=== PATIENT | male | born 1955 | race Caucasian/White ===

== ENCOUNTER 2016-06-04 23:49 | Inpatient (IN) | payer MEDICARE, MEDICAID ==
[~2016-06-04] VITALS: Ht 167.6 cm; Wt 96.6 kg
[2016-06-05] MEDS ORDERED: OLANZapine 5 MG RAPDIS TABLET PO PRN (03:45)
[2016-06-05] MEDS: LORazepam 2 MG TABLET PO PRN ×2 (05:32→19:55)
[2016-06-05 05:50] VITALS: BP 132/67
[2016-06-05 08:33] VITALS: BP 123/75
[2016-06-05] MEDS ORDERED: ACETAMINOPHEN 325 MG TABLET PO PRN (09:45)
[2016-06-05] MEDS ORDERED: HydrOXYzine PAMOATE 50 MG CAPSULE PO PRN (09:45)
[2016-06-05] MEDS ORDERED: PROMETHAZINE HCL 25 MG TABLET PO PRN (09:45)
[2016-06-05] MEDS ORDERED: MAGNESIUM HYDROXIDE SUSPENSION 30 ML UDCUP PO PRN (09:45)
[2016-06-05] MEDS ORDERED: MAG HYDROX/AL HYDROX/SIMETH ES 30 ML SUSPENSION UDCUP PO PRN (09:45)
[2016-06-05] MEDS ORDERED: TUBERCULIN, PURIFIED PROTEIN DERIVATIVE 5 TU/0.1 ML SYG ID ONE (09:45)
[2016-06-05] MEDS ORDERED: LOPERAMIDE HCL 2 MG CAPSULE PO PRN (09:45)
[2016-06-05 16:33] VITALS: BP 144/74
[2016-06-05] MEDS: THIAMINE HCL 100 MG TABLET PO SCH (16:43)
[2016-06-05] MEDS: PREGABALIN 50 MG CAPSULE PO SCH (17:00)
[2016-06-05] MEDS: ACAMPROSATE CALCIUM 333 MG DR TABLET PO SCH (17:00)
[2016-06-05] MEDS ORDERED: PRAZOSIN HCL 1 MG CAPSULE PO SCH (21:00)
[2016-06-05] MEDS: DIVALPROEX SODIUM 500 MG ER TABLET PO SCH (21:00)
[2016-06-05] MEDS: ZOLPIDEM TARTRATE 10 MG TABLET PO PRN (21:11)
[2016-06-06 07:14] VITALS: BP 131/82
[2016-06-06 08:12] VITALS: BP 134/68
[2016-06-06 08:35] LABS: BASOPHILS % (AUTO) 0.5 % (0.0-2.0); EOSINOPHILS % (AUTO) 3.9 % (1.0-6.0); HEMATOCRIT 38.5 % (41-53); HEMOGLOBIN 12.5 g/dL (13.5-17.5); LYMPHOCYTES # (AUTO) 2.2 K/uL (1.0-4.8); LYMPHOCYTES % (AUTO) 20.6 % (22.0-44.0); MEAN CORPUSCULAR HEMOGLOBIN 27.6 pg (26.0-34.0); MEAN CORPUSCULAR HGB CONC 32.5 G/dL (31.0-37.0); MEAN CORPUSCULAR VOLUME 85 fL (80-100); MONOCYTES # (AUTO) 0.8 K/uL (0.1-1.0); MONOCYTES % (AUTO) 7.6 % (2.0-9.0); NEUTROPHILS # (AUTO) 7.2 K/uL (1.8-7.7); NEUTROPHILS % (AUTO) 67.4 % (40.0-70.0); PLATELET COUNT (AUTO) 440 K/uL (150-450); RED BLOOD CELL COUNT(AUTO) 4.52 MIL/uL (4.50-5.90); RED CELL DISTRIBUTION WIDTH 14.8 % (11.5-14.5); WHITE BLOOD COUNT (AUTO) 10.7 K/uL (4.5-11.0)
[2016-06-06] MEDS: ACAMPROSATE CALCIUM 333 MG DR TABLET PO SCH ×3 (09:00→17:00)
[2016-06-06] MEDS: PREGABALIN 50 MG CAPSULE PO SCH ×2 (09:00→13:00)
[2016-06-06] MEDS ORDERED: DULoxetine HCL 20 MG CAPSULE PO SCH (09:00)
[2016-06-06] MEDS: THIAMINE HCL 100 MG TABLET PO SCH ×2 (09:00→17:00)
[2016-06-06] MEDS ORDERED: TraMADol HCL 50 MG TABLET PO PRN (09:00)
[2016-06-06] MEDS: FOLIC ACID 1 MG TABLET PO SCH (09:00)
[2016-06-06] MEDS: MULTIVITAMINS WITH MINERALS, THERAPEUTIC TABLET PO SCH (09:00)
[2016-06-06 09:16] LABS: HEMOGLOBIN A1C 6.6 % (4.5-6.2)
[2016-06-06 09:21] LABS: ALANINE AMINOTRANSFERASE 23 U/L (12-78); ALBUMIN 3.5 g/dL (3.4-5.0); ANION GAP 10 mmol/L (8-16); ASPARTATE AMINOTRANSFERASE 17 U/L (15-37); BILIRUBIN,TOTAL 0.3 mg/dL (0.1-1.0); CALCIUM, TOTAL 8.7 mg/dL (8.8-10.5); CARBON DIOXIDE 27 mmol/L (22-29); CHLORIDE 103 mmol/L (98-107); CREATININE 1.02 mg/dL (0.60-1.30); GLOMERULAR FILTR. RATE CALC > 60 mL/min (>60); POTASSIUM 4.2 mmol/L (3.5-5.1); SODIUM SERUM 140 mmol/L (136-145); THYROID STIMULATING HORMONE 1.12 uIU/mL (0.36-3.74); TOTAL PROTEIN, SERUM 7.5 g/dL (6.4-8.2); UREA NITROGEN, BLOOD 18 mg/dL (7-18)
[2016-06-06] MEDS: LORazepam 2 MG TABLET PO PRN ×3 (09:44→18:27)
[2016-06-06] MEDS ORDERED: DIVA500T52 PO (13:55)
[2016-06-06] MEDS ORDERED: ACAM333T7 PO (13:55)
[2016-06-06] MEDS: DIVALPROEX SODIUM 500 MG ER TABLET PO SCH (20:35)
[2016-06-06] MEDS: ZOLPIDEM TARTRATE 10 MG TABLET PO PRN (20:36)
[2016-06-07] MEDS: LORazepam 2 MG TABLET PO PRN ×2 (06:51→10:55)
[2016-06-07 08:27] VITALS: BP 141/80
[2016-06-07] MEDS: THIAMINE HCL 100 MG TABLET PO SCH (09:00)
[2016-06-07] MEDS: ACAMPROSATE CALCIUM 333 MG DR TABLET PO SCH (09:00)
[2016-06-07] MEDS: FOLIC ACID 1 MG TABLET PO SCH (09:00)
[2016-06-07] MEDS: MULTIVITAMINS WITH MINERALS, THERAPEUTIC TABLET PO SCH (09:00)
[2016-06-07] MEDS ORDERED: ATENOLOL 50 MG TABLET PO SCH ×2 (09:23→10:00)
[2016-06-07] MEDS ORDERED: ATEN50TA PO (09:32)
== END 2016-06-07 12:52 | disposition home or self-care (01) | DRG 881 ==
LOC: EDSTATUS 23:50 → B3A 06-05 04:34
PROVIDERS: ADMIT Psychiatry & Neurology Psychiatry; ATTEND Psychiatry & Neurology Psychiatry
PROC: GZ51ZZZ Individual Psychotherapy, Behavioral (ICD-10-PCS; principal; 2016-06-05)
DX: F32.9 Major depressive disorder, single episode, unspecified (principal); F43.10 Post-traumatic stress disorder, unspecified; E78.5 Hyperlipidemia, unspecified; G89.29 Other chronic pain; I10 Essential (primary) hypertension; K31.9 Disease of stomach and duodenum, unspecified; M54.9 Dorsalgia, unspecified; Z79.899 Other long term (current) drug therapy; Z88.8 Allergy status to other drugs, medicaments and biological substances; Z88.4 Allergy status to anesthetic agent; Z91.19 Patient's noncompliance with other medical treatment and regimen; Z59.9 Problem related to housing and economic circumstances, unspecified; Z81.8 Family history of other mental and behavioral disorders
CPT/HCPCS: 83036; 84439; 84443

== ENCOUNTER 2016-07-26 18:08 | Inpatient (IN) | payer MEDICARE, MEDICAID ==
[~2016-07-26] VITALS: Ht 167.6 cm; Wt 97.6 kg
[~2016-07-26 18:08] MED LIST: ACAM333T7 PO; ATEN50TA PO; DIVA500T52 PO
[2016-07-26] MEDS ORDERED: ZOLPIDEM TARTRATE 10 MG TABLET PO PRN (19:00)
[2016-07-26] MEDS ORDERED: OLANZapine 5 MG RAPDIS TABLET PO PRN (19:00)
[2016-07-26 19:18] VITALS: BP 170/88
[2016-07-26] MEDS ORDERED: PNEUMOCOCCAL VACCINE POLYVALENT 0.5 ML VIAL [PPSV23] IM ONE (19:30)
[2016-07-26] MEDS ORDERED: IBUPROFEN 400 MG TABLET PO PRN (20:45)
[2016-07-26] MEDS ORDERED: ACETAMINOPHEN 325 MG TABLET PO PRN (20:45)
[2016-07-26 20:50] VITALS: BP 153/88
[2016-07-26] MEDS: LISINOPRIL 20 MG TABLET PO SCH (20:51)
[2016-07-26] MEDS: PRAZOSIN HCL 1 MG CAPSULE PO SCH (20:51)
[2016-07-26 21:47] LABS: APPEARANCE,URINE CLEAR (CLEAR); GLUCOSE, URINE (UA) NEGATIVE (NEGATIVE); KETONES,URINE NEGATIVE (NEGATIVE); LEUKOCYTE ESTERASE ,URINE NEGATIVE (NEGATIVE); OCCULT BLOOD,URINE NEGATIVE (NEGATIVE); PH,URINE 5.5 (5.0-8.0); PROTEIN,URINE NEGATIVE (NEGATIVE)
[2016-07-26 22:02] LABS: ADD UA MICROSCOPIC NO
[2016-07-27 01:45] VITALS: BP 152/89
[2016-07-27] MEDS: LORazepam 2 MG TABLET PO PRN ×2 (08:01→12:56)
[2016-07-27] MEDS ORDERED: ATENOLOL 25 MG TABLET PO SCH (09:00)
[2016-07-27] MEDS: LISINOPRIL 20 MG TABLET PO SCH (09:31)
[2016-07-27] MEDS: DULoxetine HCL 20 MG CAPSULE PO SCH (09:31)
[2016-07-27 11:16] VITALS: BP 153/92
[2016-07-27] MEDS ORDERED: HydrOXYzine PAMOATE 50 MG CAPSULE PO PRN (11:45)
[2016-07-27] MEDS ORDERED: GuaiFENesin/D-METHORPHAN [SUGAR-FREE] 200-20MG/10 ML SYRUP UDCUP PO PRN (11:45)
[2016-07-27] MEDS ORDERED: MAG HYDROX/AL HYDROX/SIMETH ES 30 ML SUSPENSION UDCUP PO PRN (11:45)
[2016-07-27] MEDS ORDERED: MAGNESIUM HYDROXIDE SUSPENSION 30 ML UDCUP PO PRN (11:45)
[2016-07-27] MEDS ORDERED: PROMETHAZINE HCL 25 MG TABLET PO PRN (11:45)
[2016-07-27] MEDS ORDERED: ACETAMINOPHEN 325 MG TABLET PO PRN (11:45)
[2016-07-27] MEDS ORDERED: LOPERAMIDE HCL 2 MG CAPSULE PO PRN (11:45)
[2016-07-27] MEDS: ACAMPROSATE CALCIUM 333 MG DR TABLET PO SCH ×2 (12:07→15:52)
[2016-07-27] MEDS ORDERED: PREGABALIN 50 MG CAPSULE PO SCH (13:00)
[2016-07-27] MEDS ORDERED: OxyCODONE HCL/ACETAMINOPHEN 5-325 MG TABLET PO PRN (13:30)
[2016-07-27] MEDS ORDERED: GABAPENTIN 400 MG CAPSULE PO PRN (14:00)
[2016-07-27] MEDS: THIAMINE HCL 100 MG TABLET PO SCH (15:52)
[2016-07-27] MEDS: OxyCODONE HCL/ACETAMINOPHEN 5-325 MG TABLET PO PRN (18:48)
[2016-07-27 18:50] VITALS: BP 128/69
[2016-07-27 20:00] VITALS: BP 135/74
[2016-07-27] MEDS: PRAZOSIN HCL 1 MG CAPSULE PO SCH (20:25)
[2016-07-27] MEDS ORDERED: DIVALPROEX SODIUM 500 MG ER TABLET PO SCH (21:00)
[2016-07-28 04:46] VITALS: BP 157/97
[2016-07-28 07:05] VITALS: BP 137/90
[2016-07-28] MEDS: OxyCODONE HCL/ACETAMINOPHEN 5-325 MG TABLET PO PRN ×2 (07:08→09:40)
[2016-07-28] MEDS: LISINOPRIL 20 MG TABLET PO SCH (08:18)
[2016-07-28] MEDS: THIAMINE HCL 100 MG TABLET PO SCH (08:19)
[2016-07-28] MEDS: ACAMPROSATE CALCIUM 333 MG DR TABLET PO SCH ×2 (08:19→12:16)
[2016-07-28] MEDS: DULoxetine HCL 20 MG CAPSULE PO SCH (08:19)
[2016-07-28] MEDS ORDERED: FOLIC ACID 1 MG TABLET PO SCH (09:00)
[2016-07-28] MEDS ORDERED: MULTIVITAMINS WITH MINERALS, THERAPEUTIC TABLET PO SCH (09:00)
[2016-07-28] MEDS ORDERED: DIVA500T52 PO (12:26)
[2016-07-28] MEDS ORDERED: DULO20CA30 PO (12:26)
[2016-07-28] MEDS ORDERED: PRAZ1 PO (12:27)
[2016-07-28] MEDS ORDERED: LISI-662 PO (12:28)
== END 2016-07-28 13:45 | disposition home or self-care (01) | DRG 885 ==
LOC: 3EX 18:15
PROVIDERS: ADMIT Psychiatry & Neurology Psychiatry; ATTEND Psychiatry & Neurology Psychiatry
PROC: 3E0234Z Introduction of Serum, Toxoid and Vaccine into Muscle, Percutaneous Approach (ICD-10-PCS; principal; 2016-07-26)
DX: F31.30 Bipolar disorder, current episode depressed, mild or moderate severity, unspecified (principal); F11.20 Opioid dependence, uncomplicated; F43.10 Post-traumatic stress disorder, unspecified; F10.10 Alcohol abuse, uncomplicated; Z53.29 Procedure and treatment not carried out because of patient's decision for other reasons; E66.9 Obesity, unspecified; F31.89 Other bipolar disorder; G89.29 Other chronic pain; F17.210 Nicotine dependence, cigarettes, uncomplicated; I10 Essential (primary) hypertension; E78.5 Hyperlipidemia, unspecified; Z28.21 Immunization not carried out because of patient refusal; Z79.899 Other long term (current) drug therapy; Z68.34 Body mass index [BMI] 34.0-34.9, adult; Z88.8 Allergy status to other drugs, medicaments and biological substances; Z91.19 Patient's noncompliance with other medical treatment and regimen
CPT/HCPCS: 80307; 87081